=== PATIENT | female | born 1980 | race Caucasian/White ===

== ENCOUNTER 2017-04-01 13:16 | Observation (INO) ==
--- NOTE | 2017-04-01 14:02 | Emergency Department Note ---
Arrival - Arrival Chief Complaint: Abscess Stated Complaint: staph on chest,nose and butt ED Nursing Triage Note: PT C/O ABSCESS' TO BUTTOCK, RIGHT BREAST, AND INSIDE NOSE. PT DENIES DRAINAGE OR FEVER. PT HAS HAD 2 + HOME PREG TEST Mode of Arrival: Ambulatory Limitations: No Limitations Source: Patient, RN Notes Reviewed Time Seen by Provider: 04/01/17 13:48 - History of Present Illness HPI Narrative: Patient is a 36-year-old white female with a right breast abscess which is tender and fluctuant. This is been present for several days. Patient denies chills or fever. There has been no purulent drainage. The patient is not breast-feeding. She is unsure of her status. Onset (ago): day(s) (3) Consistency: constant Severity: moderate Date of Last Menstrual Period: MARCH 02 Allergies/Adverse Reactions: Allergies Allergy/AdvReac Type Severity Reaction Status Date / Time Penicillins Allergy RASH Verified 04/01/17 13:21 Home Medications: Home Medications Medication Instructions Recorded Confirmed Type HYDROcodone/ACETAMIN 10-325 [[place] 1 tablet PO Q12H PRN 04/01/17 04/01/17 History 10-325] Review of System - Review of System 12 point system: reviewed and no additional remarkable complaints except as stated - Review of System Constitutional: Absent: chills, fever Respiratory: Absent: cough, respiratory distress Cardiovascular: Absent: chest pain Gastrointestinal: Absent: abdominal pain, nausea, vomiting Medical,Surgical,& Family Hx - Medical History Musculoskeletal: History of: Back/Neck Problems - Social History Smoking Status: Current every day smoker Frequency of Alcohol Use: None Type of Drug Use: None Functional capacity: independent ambulation Exam Vital Signs: Vital Signs Temperature 98.7 F 04/01/17 13:52 Pulse Rate 101 H 04/01/17 13:52 Respiratory Rate 18 04/01/17 13:52 Blood Pressure 133/79 04/01/17 13:52 O2 Sat by Pulse Oximetry 100 04/01/17 13:18 GENERAL: This is a well-nourished well-developed white female in no apparent distress. VITAL SIGNS: Reviewed HEENT: Head is atraumatic and normocephalic. Pupils are equal round react to light. Extraocular movements are intact. Oropharynx is benign with moist mucous membranes. NECK: Neck is soft and supple without tenderness. There are no masses. There is no lymphadenopathy. LUNGS: Lungs are clear to auscultation. Chest rises symmetrically. There is no chest wall tenderness. Patient does have some tenderness overlying the right breast. She has an abscess which is fluctuant erythematous and tender which is present in the upper outer quadrant of the right breast. There is no purulent drainage. There is no nipple discharge. CV: Heart is regular rate and rhythm without murmurs rubs or gallops. ABDOMEN: Abdomen is soft, nontender to palpation. There are no abdominal abnormal masses palpated. There is no organomegaly. Bowel sounds are present and active. SKIN: Skin is warm and dry. No rash. EXTREMITIES: Patient has full range of motion without tenderness. There is no pedal edema. NEUROLOGIC: Awake alert and oriented 4. Cranial nerves II through XII are grossly intact. Motor is 5 over 5 in all extremities bilaterally. Deep tendon reflexes are 2+ and bilaterally equal. Course - Consultations Consultation #1: Discussed with Dr. Leos consumer loan specialist for surgery. He will see the patient in the emergency department. Time: 14:06 Disposition Clinical Impression: Abscess of right breast Case discussed with: patient Condition: Stable
--- NOTE | 2017-04-01 14:49 | General Surg History&Physical ---
Assessment and Plan (1) Abscess of right breast Status: Acute Assessment and plan: Impression: Right breast abscess next Plan: Discussed incision and drainage of right breast abscess and she would like to proceed. Patient requests sedation. I discussed the procedure and has performed and the anticipated recovery. Risk of the procedure including bleeding, infection, damage to surrounding structures, need for further surgery were all discussed in detail and she would like to proceed. Current Visit: Yes History of Present Illness Chief complaint: Breast abscess History of present illness: Ms. Hammer is a 36 year old female presents with a one-week history of right breast pain with progressive swelling and redness. She denies fever. She has no previous medical problems. She denies chest pain and shortness of breath. Her only complaint is of right breast pain. Home Medications Medication Instructions Recorded Confirmed Type HYDROcodone/ACETAMIN 10-325 [[place] 1 tablet PO Q12H PRN 04/01/17 04/01/17 History 10-325] Allergies Allergy/AdvReac Type Severity Reaction Status Date / Time Penicillins Allergy RASH Verified 04/01/17 13:21 Medical,Surgical,& Family Hx - Medical History Medical History: noncontributory Musculoskeletal: History of: Back/Neck Problems - Social History Smoking Status: Current every day smoker Frequency of Alcohol Use: None Type of Drug Use: None Exam - Constitutional Vitals: Period Temp Pulse Resp BP Sys/Young Pulse Ox Last 24 Hr 98.7 F-98.7 F 101-101 18-18 133-133/79-79 100 General appearance: no acute distress - Head Head exam: Present: normocephalic - ENT Mouth exam: Present: normal external inspection - Neck Neck exam: Present: normal inspection - Respiratory Respiratory exam: Present: clear to auscultation bilaterally - Cardiovascular Cardiovascular exam: Present: RRR - Breasts Breasts: swelling (There is right breasts erythema with some mild swelling and a large area of fluctuance superior and lateral to the nipple. Some mild overlying skin changes.) - GI/Abdominal GI/Abdominal exam: Present: soft - Extremities Exam Extremities exam: Present: normal inspection - Back Exam Back exam: Present: normal inspection - Neurological Exam Neurological exam: Present: alert, oriented X3 Speech: Present: normal 12 point system: reviewed and no additional remarkable complaints except as stated
[2017-04-01] MEDS ORDERED: CLINDAMYCIN INJ 900 MG in PREMIX 1 EACH IV ONE (14:50)
[2017-04-01] MEDS ORDERED: METOCLOPRAMIDE 10 MG/2 ML VIAL ONE (14:52)
[2017-04-01] MEDS ORDERED: METOCLOPRAMIDE 10 MG/2 ML VIAL IV STA (14:52)
[2017-04-01] MEDS ORDERED: BUPIVACAINE MPF 0.25% /EPI 30 ML VIAL ONE (16:29)
[2017-04-01] MEDS ORDERED: CLINDAMYCIN INJ 50 ML IV ONE (16:46)
[2017-04-01] MEDS ORDERED: PHENYLEPHRINE 1 MG/10 ML SYRINGE IV ONE (17:08)
[2017-04-01] MEDS ORDERED: PROPOFOL 200 MG/20 ML VIAL IV ONE (17:08)
[2017-04-01] MEDS ORDERED: ONDANSETRON 4 MG/2 ML VIAL ONE (17:08)
[2017-04-01] MEDS ORDERED: SUCCINYLCHOLINE 200 MG/10 ML VIAL ONE (17:08)
[2017-04-01] MEDS ORDERED: LIDOCAINE 100 MG/5 ML SYRINGE ONE (17:08)
[2017-04-01] MEDS ORDERED: ONDANSETRON 4 MG/2 ML VIAL IV PRN (17:46)
[2017-04-01] MEDS ORDERED: MORPHINE 2 MG/1 ML SYRINGE IV PRN (17:46)
[2017-04-01] MEDS ORDERED: ACETAMINOPHEN 325 MG TABLET PO PRN (17:46)
--- NOTE | 2017-04-01 17:46 | Operative Note ---
Date of procedure: 04/01/17 Pre-op diagnosis: Right breast abscess Post-op diagnosis: same Procedure: Procedure performed: Incision and drainage right breast abscess Procedure in detail: After informed consent was obtained patient taken operating suite placed upon the operating table. After general anesthesia induced the right breast was prepped and draped in usual sterile fashion. After procedural pause incision made over the fluctuant area and there was return of foul-smelling purulence. Cultures were obtained and sent. All loculations were freed. Cavity was thoroughly irrigated and suctioned. There was good hemostasis and it was packed with half-inch iodoform gauze. Sterile dressings applied. Patient taken recovery room in stable condition. All lap and needle counts correct at the end of the case. Anesthesia: GETA Surgeon / Physician: Juan Leos Estimated blood loss: other (Less than 5 cc) Specimens: other (Culture sent) Condition: stable Disposition: PACU Discharge Plan - Discharge Data Disposition: Still a Patient - Discharge Medications No Action HYDROcodone/ACETAMIN 10-325 [[place] 10-325] 1 tablet PO Q12H PRN PRN Reason: BACK PAIN - Follow Up or Referral - Forms/Instructions
--- NOTE | 2017-04-01 19:39 | Anesthesia Post-Op ---
Anesthesia Post OP - Post Ansesthetic Evaluation Patient seen in post op: Yes Resp: within normal limits CV: within normal limits Mental: within normal limits Temp: within normal limits [id number]: within normal limits Nausea and Vomiting: within normal limits Pain: within normal limits
[2017-04-01] MEDS ORDERED: SEVOFLURANE 1 UNIT/15 MINUTE INH ONE (19:46)
[2017-04-01] MEDS ORDERED: fentaNYL 100 MCG/2 ML VIAL ONE (19:46)
[2017-04-01] MEDS ORDERED: MIDAZOLAM 2 MG/2 ML VIAL ONE (19:46)
[2017-04-02] MEDS: CLINDAMYCIN INJ 900 MG in PREMIX 1 EACH IV SCH ×3 (00:05→12:01)
[2017-04-02] MEDS ORDERED: PANTOPRAZOLE 40 MG TABLET PO SCH (09:00)
--- NOTE | 2017-04-02 10:42 | Discharge Summary ---
Hospital Course - Hospital Course Hospital Course: Patient is a 36-year-old female who underwent surgical I&D of right breast abscess. Preliminary cultures growing gram-positive cocci. Dressing changed at bedside and patient educated with family member via telephone. Patient discharged home in good condition with oral antibiotics and appropriate analgesics. We will follow-up on the final cultures. Follow with Dr. Leos 10 days. Diagnosis - Discharge Diagnosis (1) Abscess of right breast Status: Acute Specialty Discharge - Follow Up or Referrals Follow up with: Juan Leos MD [Physician] - 04/13/17 9:30 am (10 days) Discharge Plan - Discharge Data Disposition: Disch To Home/Self Care Condition at Discharge: Stable Discharge Diet: advance to your usual diet Activity: other (Avoid sweating. ) Hygiene: may shower Contact your physician if you experience:: fever over 101, Redness or swelling ( increased drainage or malodor), Nausea/Vomiting, Bleeding, pain uncontrolled by pain medications Wound / Dressing Care Instructions: Change dressing daily. -Remove packing. - Clean with saline. -Loosely repack with iodoform gauze provided. -Cover with adhesive bandage - Discharge Medications New Clindamycin HCl [Clindamycin Cap] 600 mg PO Q8HR #21 capsule HYDROcodone/ACETAMIN 7.5-325 [[place] 7.5-325] 1 - 2 tablet PO Q4-6H PRN #30 tablet PRN Reason: Pain Moderate To Severe (4-10) Discontinued HYDROcodone/ACETAMIN 10-325 [[place] 10-325] 1 tablet PO Q12H PRN PRN Reason: BACK PAIN - Follow Up or Referral Follow Up: Juan Leos MD [Physician] - 04/13/17 9:30 am (10 days) - Forms/Instructions Instructions: Clindamycin (By mouth), Hydrocodone/Acetaminophen (By mouth), Breast Abscess Drainage (DC) Exam - Constitutional Vitals: Period Temp Pulse Resp BP Sys/Young Pulse Ox Last 24 Hr 97.2 F-98.9 F 69-101 16-19 80-133/52-92 95-100 General appearance: normal weight, other (Tearful when discussing dressing changes prior to initiating process. ) - Head Head exam: Present: normal inspection, normocephalic - Eye Eye exam: Absent: conjunctival injection, scleral icterus - Respiratory Respiratory exam: Present: clear to auscultation bilaterally - Cardiovascular Cardiovascular exam: Present: regular rate and rhythm - GI/Abdominal GI/Abdominal exam: Present: soft. Absent: distended, tenderness - Extremities Exam Extremities exam: Absent: calf tenderness, edema - Neurological Exam Neurological exam: Present: alert, oriented X3 - Skin Skin exam: Present: normal color, warm, other (Dressing removed. There is approximately 2.5 cm wound with minimal surrounding erythema with evidence of receding cellulitis with wrinkle signs. Packing was removed and there is no active drainage or malodor. Wound is approximately 6 mm deep. The wound was loosely repacked with quarter inch iodoform gauze and sterile dressing reapplied per) Discharge Results Procedures and tests throughout hospitalization: Pending Orders 04/01/17 17:35 Abscess Culture Routine Anaerobic Culture Routine Prelim cultures: G+ cocci Labs on day of discharge: Labs from last 24 hours 04/01/17 14:02 Urine Test Negative Preliminary micro results at discharge 04/01/17 17:35 Abscess Culture - Preliminary Breast - Right Gram Positive Cocci DS: Provider Date of admission: 04/01/17 17:46 Primary care physician: Judy Dutton MD Attending physician on admission: Juan Leos MD Consults: None Discharging clinician: Li Rader PA-C
[2017-04-02 11:22] VITALS: BP 101/65
== END 2017-04-02 15:55 | disposition home or self-care (01) ==
LOC: N.3E 13:16 → N.ED 13:16 → N.3E 16:50
PROVIDERS: ADMIT Surgery; ATTEND Surgery

== ENCOUNTER 2021-08-23 13:57 | Observation (INO) ==
[2021-08-23] MEDS ORDERED: predniSONE 20 MG TABLET PO STA (14:49)
[2021-08-23] MEDS ORDERED: ALBUTEROL NEB SOLN 5 MG/ML 20 ML/BOTTLE CONT NEB SCH (15:00)
[2021-08-23 15:51] LABS: Albumin 3.7 G/DL (3.4-5.0); Bilirubin,Total 0.4 MG/DL (0.20-1.00); Calcium 8.8 MG/DL (8.5-10.1); Osmolality,Calculated 270.8 MOS/KG (273-304); Potassium 3.9 MMOL/L (3.5-5.1); Total Protein 7.2 G/DL (6.4-8.2)
[2021-08-23] MEDS ORDERED: MAGNESIUM SULF RIDER 2 GM/50 ML PREMIX IV ONE (16:20)
[2021-08-23] MEDS ORDERED: ONDANSETRON 4 MG/2 ML VIAL IV PRN (16:20)
[2021-08-23] MEDS ORDERED: ALBUTEROL 2.5 MG/3 ML NEB RESP TX PRN (16:20)
[2021-08-23] MEDS ORDERED: ENOXAPARIN 40 MG/0.4 ML SYRINGE SUBCUT SCH (16:30)
[2021-08-23] MEDS ORDERED: LEVOFLOXACIN 500 MG TABLET PO SCH (16:30)
[2021-08-23] MEDS: SODIUM CHLORIDE 0.45% 1,000 ML IV SCH ×2 (16:30→21:14)
[2021-08-23 16:44] LABS: Basophils % 0.5 % (0.0-0.8); Eosinophils # 0.4 10*3/uL (0.0-0.87); Eosinophils % 4.9 % (0.00-10.9); Hematocrit 33.5 VOL% (35.7-47.0); Hemoglobin 9.6 GM/DL (12.0-16.0); Immature Granulocytes % 0.2 %; Immature Granulocytes Absolute 0.02 #; Lymphocytes # 1.2 10*3/uL (1.4-4.0); Lymphocytes % 14.6 % (21.3-54.2); Mean Corpuscular HGB Conc 28.7 GM/DL (32-36); Mean Corpuscular Volume 75.5 FL (87-102); Mean Platelet Volume 9.7 FL (9.6-12.0); Monocytes % 6.9 % (1.7-12.7); Neutrophils % 72.9 % (38.7-73.9); Platelet Count 376 T/CUMM (130-400); Red Blood Count 4.44 MC/CUMM (3.8-5.5); Red Cell Distribution Width 17.3 % (9.3-17.3)
[2021-08-23 16:59] LABS: Thyroid Stimulating Hormone 0.719 uIU/ml (0.358-3.74)
[2021-08-23] MEDS: methylPREDNISolone SOD SUC 125 MG/2 ML VIAL IV SCH ×2 (17:02→22:07)
[2021-08-23] MEDS: PANTOPRAZOLE 40 MG TABLET PO SCH (17:04)
[2021-08-23] MEDS: ALBUTEROL/IPRATROPIUM 3 ML NEB RESP TX SCH ×2 (20:01→23:30)
[2021-08-23] MEDS ORDERED: INFLUENZA VIRUS VACCINE 0.5 ML SYRINGE IM ONE (20:19)
[2021-08-23] MEDS ORDERED: MONTELUKAST 10 MG TABLET PO SCH (21:00)
[2021-08-24] MEDS: SODIUM CHLORIDE 0.45% 1,000 ML IV SCH ×2 (00:18→11:39)
[2021-08-24] MEDS: ALBUTEROL/IPRATROPIUM 3 ML NEB RESP TX SCH ×3 (03:40→11:00)
[2021-08-24] MEDS: methylPREDNISolone SOD SUC 125 MG/2 ML VIAL IV SCH (04:28)
[2021-08-24 06:22] LABS: Albumin 3.4 G/DL (3.4-5.0); Bilirubin,Total 0.7 MG/DL (0.20-1.00); Calcium 9.1 MG/DL (8.5-10.1); Potassium 3.8 MMOL/L (3.5-5.1); Total Protein 7.2 G/DL (6.4-8.2)
[2021-08-24 06:35] LABS: Hematocrit 31.6 VOL% (35.7-47.0); Immature Granulocytes % 0.5 %; Immature Granulocytes Absolute 0.02 #; Lymphocytes # 0.3 10*3/uL (1.4-4.0); Lymphocytes % 7.3 % (21.3-54.2); Mean Corpuscular HGB Conc 28.2 GM/DL (32-36); Mean Corpuscular Volume 74.4 FL (87-102); Mean Platelet Volume 9.5 FL (9.6-12.0); Monocytes % 0.7 % (1.7-12.7); Neutrophils % 91.5 % (38.7-73.9); Platelet Count 380 T/CUMM (130-400); Red Blood Count 4.25 MC/CUMM (3.8-5.5); Red Cell Distribution Width 17.4 % (9.3-17.3); White Blood Count 4.1 T/CUMM (4-12)
[2021-08-24 06:36] LABS: Hemoglobin 8.9 GM/DL (12.0-16.0)
[2021-08-24 06:58] LABS: Anisocytosis 2+; Band Neutrophils 9 % (0-10); Lymphocytes 5 % (20-55); Platelet Estimate Normal; Segmented Neutrophils 86 % (50-85); Total Cells Counted 100
[2021-08-24 07:56] LABS: % Iron Saturation 2.8 % (18-50); Ferritin 4.1 ng/mL (8-252)
[2021-08-24 10:37] LABS: Hepatitis B Core IgM Quant 0.07 Index; Hepatitis B Surface Ag Quant < 0.10 Index; Hepatitis B Surface Ag Result Non-Reactive (NonReactive); Hepatitis C Virus Ab Quant > 11.00 Index
[2021-08-24 10:50] LABS: Hepatitis C Virus Ab Result Reactive (NonReactive)
[2021-08-24 11:39] VITALS: BP 128/73
[2021-08-24] MEDS: PANTOPRAZOLE 40 MG TABLET PO SCH (11:40)
== END 2021-08-24 14:21 | disposition home or self-care (01) ==
LOC: EDUNIT# → EDBD → N.ED 13:57 → N.EDINP 13:57 → N.3E 19:23
PROVIDERS: ADMIT Internal Medicine; ATTEND Internal Medicine